=== PATIENT | female | born 1960 | race Caucasian/White ===

== ENCOUNTER 2020-02-22 00:27 | Emergency (ER) | payer MEDICAID, OTHER ==
[~2020-02-22] VITALS: Ht 162.6 cm; Wt 95.3 kg
[2020-02-22 00:42] VITALS: BP 148/87
--- NOTE | 2020-02-22 00:50 | NUR ---
PT AMBULATED TO BED 4 WITH STEADY GAIT.
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
[2020-02-22 00:54] VITALS: BP 148/87
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
[2020-02-22] MEDS ORDERED: IBUPROFEN 800 MG TAB PO ONE (01:35)
--- NOTE | 2020-02-22 02:45 | NUR ---
Patient discharged with v/s stable. Written and verbal after care instructions given and explained. Patient alert, oriented and verbalized understanding of instructions. Ambulatory with steady gait. All questions addressed prior to discharge. ID band removed. Patient advised to follow up with PMD. Rx of MOTRIN given. Patient educated on indication of medication including possible reaction and side effects. Opportunity to ask questions provided and answered.PT IN STABLE CONDITION.
== END 2020-02-22 02:45 | disposition home or self-care (01) ==
LOC: MED 00:27
DX: R07.81 Pleurodynia (principal); E11.9 Type 2 diabetes mellitus without complications; Z90.49 Acquired absence of other specified parts of digestive tract
CPT/HCPCS: 71101; 99283

== ENCOUNTER 2020-03-02 10:18 | Emergency (ER) | payer OTHER ==
[~2020-03-02] VITALS: Ht 162.6 cm; Wt 95.3 kg
[2020-03-02 10:22] VITALS: BP 130/80
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
--- NOTE | 2020-03-02 11:00 | NUR ---
DR. CONLEY AT BEDSIDE FOR EXAM
[2020-03-02] MEDS ORDERED: KETOROLAC 30 MG/ML VIAL IM ONE (11:05)
--- NOTE | 2020-03-02 11:10 | NUR ---
TO RADIOLOGY VIA W/C
--- NOTE | 2020-03-02 11:25 | NUR ---
RETURNED FROM RADIOLOGY
--- NOTE | 2020-03-02 12:20 | NUR ---
DR ROMERO AT BEDSIDE FOR EXAM
[2020-03-02 12:21] VITALS: BP 130/80
--- NOTE | 2020-03-02 12:21 | NUR ---
Patient discharged with v/s stable. Written and verbal after care instructions given and explained. Patient alert, oriented and verbalized understanding of instructions. Ambulatory with steady gait. All questions addressed prior to discharge. ID band removed. Patient advised to follow up with PMD. Rx of NAPROSYN AND EXTRA STRENGTH TYLENOL given. Patient educated on indication of medication including possible reaction and side effects. Opportunity to ask questions provided and answered.
== END 2020-03-02 12:21 | disposition home or self-care (01) ==
LOC: MED 10:18
DX: S10.0XXA Contusion of throat, initial encounter (principal); E11.9 Type 2 diabetes mellitus without complications; Y09 Assault by unspecified means; Y93.89 Activity, other specified; Y92.89 Other specified places as the place of occurrence of the external cause; Y99.8 Other external cause status
CPT/HCPCS: 71101; 96372; 99283; J1885

== ENCOUNTER 2020-03-21 11:01 | Emergency (ER) | payer OTHER ==
[~2020-03-21] VITALS: Ht 160 cm; Wt 95.7 kg
[2020-03-21 11:05] VITALS: BP 171/91
--- NOTE | 2020-03-21 11:08 | NUR ---
PT AMBULATED TO BED 11.
--- NOTE | 2020-03-21 11:10 | NUR ---
60/F presents to ED c/o lower pelvic pain starting this morning with severe pain, dysuria, frequency, urgency, and dribbling. Pt states it's a sudden onset pain. Denies fever or chills. Denies N/V/D. Patient very restless, pacing in room, unable to set d/t pain. Pt has been noted going back and forth to the restroom.
[2020-03-21] MEDS ORDERED: SULFAMETH/TRIMETH DS 800/160MG 1 TAB PO ONE (11:25)
[2020-03-21] MEDS ORDERED: KETOROLAC 60 MG/2 ML VIAL IM ONE (11:25)
[2020-03-21] MEDS ORDERED: PHENAZOPYRIDINE 100 MG TAB PO ONE (11:25)
[2020-03-21 12:14] VITALS: BP 171/91
--- NOTE | 2020-03-21 12:14 | NUR ---
Patient discharged with v/s stable. Written and verbal after care instructions given and explained. Patient alert, oriented and verbalized understanding of instructions. Ambulatory with steady gait. All questions addressed prior to discharge. ID band removed. Patient advised to follow up with PMD. Rx of pyridium, bactrim given. Patient educated on indication of medication including possible reaction and side effects. Opportunity to ask questions provided and answered.
== END 2020-03-21 12:14 | disposition home or self-care (01) ==
LOC: MED 11:01
DX: N30.90 Cystitis, unspecified without hematuria (principal); R03.0 Elevated blood-pressure reading, without diagnosis of hypertension; E11.9 Type 2 diabetes mellitus without complications
CPT/HCPCS: 81002; 81025; 96372; 99283; J1885

== ENCOUNTER 2020-03-31 11:38 | Emergency (ER) | payer OTHER ==
[~2020-03-31] VITALS: Ht 160 cm; Wt 96.2 kg
[2020-03-31 12:03] VITALS: BP 131/70
--- NOTE | 2020-03-31 12:05 | NUR ---
60/F c/o left arm pain x1 week. Patient denies any injury or trauma. Pt states the pain started suddenly and radiates up her whole arm. Worse with lying down.
--- NOTE | 2020-03-31 12:06 | NUR ---
Patient being evaluated by physician in triage.
--- NOTE | 2020-03-31 12:57 | NUR ---
Pt ambulated with emergency vehicle technician for XR.
--- NOTE | 2020-03-31 13:04 | NUR ---
Pt brought back from Xray.
--- NOTE | 2020-03-31 13:04 | NUR ---
Patient returned from XRAY.
[2020-03-31 13:29] VITALS: BP 131/70
--- NOTE | 2020-03-31 13:29 | NUR ---
Patient discharged with v/s stable. Written and verbal after care instructions given and explained. Patient alert, oriented and verbalized understanding of instructions. Ambulatory with steady gait. All questions addressed prior to discharge. ID band removed. Patient advised to follow up with PMD. Rx of ROBAXIN AND TYLENOL given. Patient educated on indication of medication including possible reaction and side effects. Opportunity to ask questions provided and answered.
== END 2020-03-31 13:26 | disposition home or self-care (01) ==
LOC: MED 11:38
DX: M25.512 Pain in left shoulder (principal); M79.602 Pain in left arm; E11.9 Type 2 diabetes mellitus without complications
CPT/HCPCS: 73030; 93005; 99283

== ENCOUNTER 2023-01-13 12:10 | Emergency (ER) | payer OTHER ==
[~2023-01-13] VITALS: Ht 160 cm; Wt 90.7 kg
[2023-01-13 12:42] VITALS: BP 136/80; PULSE 70; RESP 14; TEMP 97.1; O2SAT 98
[2023-01-13] MEDS ORDERED: KETOROLAC 30 MG/ML VIAL IM ONE (13:05)
[2023-01-13] MEDS ORDERED: NAPR-1704 PO (14:31)
[2023-01-13 14:50] VITALS: BP 136/80; PULSE 70; RESP 14; TEMP 97.1; O2SAT 98
== END 2023-01-13 14:50 | disposition home or self-care (01) ==
LOC: MED 12:10
DX: S39.92XA Unspecified injury of lower back, initial encounter (principal); E11.9 Type 2 diabetes mellitus without complications; Z79.1 Long term (current) use of non-steroidal anti-inflammatories (NSAID); W18.39XA Other fall on same level, initial encounter; Y92.89 Other specified places as the place of occurrence of the external cause; Y93.89 Activity, other specified; Y99.8 Other external cause status
CPT/HCPCS: 72220; 96372; 99283; J1885